=== PATIENT | female | born 1945 | race Caucasian/White ===

== ENCOUNTER 2020-07-09 20:11 | Observation (INO) ==
[2020-07-09] MEDS ORDERED: Isovue-370 500 ML BOTTLE IVP ONE (20:42)
[2020-07-09 21:00] LABS: Basophils % 0.4 %; Eosinophils # 0.1 K/mcL (0.0-0.6); Eosinophils % 0.8 %; Hematocrit 28.8 % (35.3-44.9); Hemoglobin 8.9 g/dL (11.5-15.4); Immature Granulocytes % 1.1 % (0-4); Lymphocytes # 1.7 K/mcL (0.6-4.6); Mean Corpuscular HGB Conc 30.9 g/dL (31.6-35.5); Mean Corpuscular Hemoglobin 28.6 pg (28.0-33.3); Mean Corpuscular Volume 92.6 fL (83.0-100.0); Mean Platelet Volume 10.6 fL (9.4-12.4); Monocytes # 0.8 K/mcL (0.0-1.3); Monocytes % 7.2 %; Neutrophils # 7.9 K/mcL (1.6-8.9); Platelet Count 217 K/mcL (140-400); Red Blood Count 3.11 M/mcL (3.82-4.97); Red Cell Distribution Width 15.6 % (11.5-14.5); Segmented Neutrophils % 74.5 %; White Blood Count 10.7 K/mcL (4.3-11.1)
[2020-07-09 21:06] LABS: INR 1.2; Prothrombin Time 13.5 Seconds (9.4-12.1)
[2020-07-09 21:09] LABS: Activated Partial Thrombo Time 35.1 Seconds (26.0-36.0)
[2020-07-09 21:29] LABS: Albumin 3.5 g/dL (3.5-5.7); Albumin/Globulin Ratio 1.3 (1.1-2.2); Bilirubin,Total 0.4 mg/dL (0.3-1.0); Calcium 7.8 mg/dL (8.6-10.3); Globulin 2.7 g/dL (2.4-3.5); Potassium 4.7 mEq/L (3.5-5.1); Total Protein 6.2 g/dL (6.4-8.9)
[2020-07-09] MEDS ORDERED: 0.9 % Sodium Chloride 1,000 ML IVC ONE (21:38)
[2020-07-09 23:25] LABS: Basophils % 0.3 %; Eosinophils % 0.4 %; Hematocrit 25.9 % (35.3-44.9); Hemoglobin 8.2 g/dL (11.5-15.4); Immature Granulocytes % 0.8 % (0-4); Lymphocytes # 1.9 K/mcL (0.6-4.6); Lymphocytes % 18.3 %; Mean Corpuscular HGB Conc 31.7 g/dL (31.6-35.5); Mean Corpuscular Hemoglobin 29.3 pg (28.0-33.3); Mean Corpuscular Volume 92.5 fL (83.0-100.0); Mean Platelet Volume 10.8 fL (9.4-12.4); Monocytes # 0.7 K/mcL (0.0-1.3); Monocytes % 7.2 %; Neutrophils # 7.4 K/mcL (1.6-8.9); Platelet Count 180 K/mcL (140-400); Red Cell Distribution Width 15.5 % (11.5-14.5); White Blood Count 10.2 K/mcL (4.3-11.1)
[2020-07-10] MEDS ORDERED: 0.9 % Sodium Chloride 500 ML ONE (02:04)
[2020-07-10] MEDS ORDERED: Ondansetron ODT 4 MG TAB.RAPDIS SL PRN (03:10)
[2020-07-10] MEDS ORDERED: Naloxone 0.4 MG/ML INJ IVP PRN (03:10)
[2020-07-10] MEDS ORDERED: Mag Hydrox/Al Hydrox/Simeth 30 ML UDC PO PRN (03:10)
[2020-07-10 06:28] LABS: Hematocrit 28.3 % (35.3-44.9); Mean Corpuscular HGB Conc 31.8 g/dL (31.6-35.5); Mean Corpuscular Hemoglobin 29.2 pg (28.0-33.3); Mean Corpuscular Volume 91.9 fL (83.0-100.0); Mean Platelet Volume 10.9 fL (9.4-12.4); Platelet Count 181 K/mcL (140-400); Red Blood Count 3.08 M/mcL (3.82-4.97); Red Cell Distribution Width 15.5 % (11.5-14.5); White Blood Count 8.8 K/mcL (4.3-11.1)
[2020-07-10 06:43] LABS: Calcium 7.8 mg/dL (8.6-10.3); Potassium 4.3 mEq/L (3.5-5.1)
[2020-07-10 11:15] LABS: Hematocrit 27.5 % (35.3-44.9); Hemoglobin 8.8 g/dL (11.5-15.4)
[2020-07-10 15:51] LABS: Hematocrit 27.7 % (35.3-44.9); Hemoglobin 8.8 g/dL (11.5-15.4)
[2020-07-11] MEDS ORDERED: Aspirin Enteric Coated 81 MG Tablet PO SCH (09:00)
[2020-07-11] MEDS ORDERED: Furosemide 20 MG TABLET PO SCH (09:00)
[2020-07-11] MEDS ORDERED: atenoloL 50 MG TABLET PO SCH (09:00)
[2020-07-11 10:17] LABS: Basophils % 0.4 %; Eosinophils # 0.1 K/mcL (0.0-0.6); Eosinophils % 1.4 %; Hematocrit 26.5 % (35.3-44.9); Hemoglobin 8.4 g/dL (11.5-15.4); Immature Granulocytes % 0.9 % (0-4); Lymphocytes # 1.3 K/mcL (0.6-4.6); Lymphocytes % 17.1 %; Mean Corpuscular HGB Conc 31.7 g/dL (31.6-35.5); Mean Corpuscular Hemoglobin 29.4 pg (28.0-33.3); Mean Corpuscular Volume 92.7 fL (83.0-100.0); Mean Platelet Volume 10.9 fL (9.4-12.4); Monocytes # 0.8 K/mcL (0.0-1.3); Monocytes % 10.6 %; Neutrophils # 5.4 K/mcL (1.6-8.9); Platelet Count 159 K/mcL (140-400); Red Blood Count 2.86 M/mcL (3.82-4.97); Red Cell Distribution Width 15.6 % (11.5-14.5); Segmented Neutrophils % 69.6 %; White Blood Count 7.8 K/mcL (4.3-11.1)
[2020-07-11 10:35] LABS: Magnesium 2.1 mg/dL (1.6-2.6); Phosphorous 2.5 mg/dL (2.7-4.5); Potassium 3.8 mEq/L (3.5-5.1)
[2020-07-11 11:58] VITALS: BP 130/64
== END 2020-07-11 12:45 | disposition home or self-care (01) ==
LOC: 2NNU 20:11 → EMEROOARM 20:11 → 2NNU 07-10 00:40
PROVIDERS: ADMIT Internal Medicine; ATTEND Internal Medicine

== ENCOUNTER 2020-07-13 09:00 | Inpatient (IN) ==
[~2020-07-13 09:00] MED LIST: *HR* HYDROmorphone 2 MG TABLET PO PRN; *HR* HYDROmorphone PF 0.5 MG/0.5 ML SYRINGE IVP PRN; *HR* Labetalol 20 MG/4 ML SYRINGE IVP PRN; Acetaminophen IV 1,000 MG/100 ML BAG IVPB ONE; Famotidine 20 MG/2 ML VIAL IVP ONE; Pregabalin 75 MG CAPSULE PO ONE
[2020-07-13] MEDS ORDERED: Lidocaine HCL 4 ML Topical Solution (Laryng-O-Jet Kit Sterile Pak) TP ONE (09:21)
[2020-07-13] MEDS ORDERED: Dexamethasone 4 MG/ML VIAL ONE (09:21)
[2020-07-13] MEDS ORDERED: Lidocaine -MPF 2% 2 ML VIAL ONE (09:21)
[2020-07-13] MEDS ORDERED: *HR* Propofol 200 MG/20 ML VIAL IVP ONE (09:21)
[2020-07-13] MEDS ORDERED: Ondansetron 4 MG/2 ML VIAL ONE (09:21)
[2020-07-13] MEDS ORDERED: *HR* Rocuronium Bromide 50 MG/5 ML VIAL ONE (09:21)
[2020-07-13] MEDS ORDERED: *HR* Remifentanil 2 MG VIAL IVP ONE (09:22)
[2020-07-13] MEDS ORDERED: CeFAZolin Syr 2,000MG/20 ML 2,000 MG/20 ML SYRINGE IVPB ONE (09:26)
[2020-07-13] MEDS ORDERED: *HR* Heparin 5,000 UNIT/ML VIAL ONE (09:26)
[2020-07-13] MEDS ORDERED: Ringers Solution, Lactated 1,000 ML IVC SCH (09:30)
[2020-07-13] MEDS ORDERED: ceFAZolin 1,000 MG, Sodium Chloride IRRigation 1,000 ML IR ONE (10:30)
[2020-07-13] MEDS ORDERED: Heparin 1,000 UNITS/500 mL 500 ML ONE (11:04)
[2020-07-13] MEDS ORDERED: Protamine Sulfate 50 MG/5 ML VIAL IVP ONE (11:04)
[2020-07-13] MEDS ORDERED: *HR* FentaNYL (PF) 100 MCG/2 ML VIAL ONE (12:14)
[2020-07-13] MEDS ORDERED: EPHEDrine 50 MG/ML VIAL ONE (12:19)
[2020-07-13] MEDS ORDERED: Sugammadex Sodium 200 MG/2 ML VIAL IV ONE (15:29)
[2020-07-13] MEDS ORDERED: Ondansetron 4 MG/2 ML VIAL IVP PRN (16:45)
[2020-07-13] MEDS ORDERED: *HR* HYDROcodone/Acet 5/325 mg TABLET PO PRN (16:45)
[2020-07-13] MEDS ORDERED: Acetaminophen 325 MG TABLET PO PRN (16:45)
[2020-07-13] MEDS ORDERED: Naloxone 0.4 MG/ML INJ IVP PRN (16:45)
[2020-07-13] MEDS ORDERED: *HR* Labetalol 20 MG/4 ML SYRINGE IVP PRN (16:45)
[2020-07-13] MEDS: CeFAZolin 2 GM/120 ML BAG IVPB SCH (21:51)
[2020-07-14] MEDS: CeFAZolin 2 GM/120 ML BAG IVPB SCH ×2 (03:52→12:58)
[2020-07-14 04:11] LABS: Basophils % 0.3 %; Hematocrit 24.3 % (35.3-44.9); Hemoglobin 7.6 g/dL (11.5-15.4); Immature Granulocytes % 1.2 % (0-4); Lymphocytes # 0.8 K/mcL (0.6-4.6); Lymphocytes % 11.4 %; Mean Corpuscular HGB Conc 31.3 g/dL (31.6-35.5); Mean Corpuscular Hemoglobin 29.1 pg (28.0-33.3); Mean Corpuscular Volume 93.1 fL (83.0-100.0); Mean Platelet Volume 11.3 fL (9.4-12.4); Monocytes # 0.4 K/mcL (0.0-1.3); Monocytes % 4.8 %; Platelet Count 169 K/mcL (140-400); Red Blood Count 2.61 M/mcL (3.82-4.97); Red Cell Distribution Width 15.2 % (11.5-14.5); Segmented Neutrophils % 82.3 %; White Blood Count 7.3 K/mcL (4.3-11.1)
[2020-07-14 04:31] LABS: Calcium 7.7 mg/dL (8.6-10.3); Potassium 4.4 mEq/L (3.5-5.1)
[2020-07-14] MEDS ORDERED: 0.9 % Sodium Chloride 250 ML ONE (08:40)
[2020-07-14] MEDS ORDERED: atenoloL 50 MG TABLET PO SCH (09:00)
[2020-07-14] MEDS ORDERED: Furosemide 20 MG TABLET PO SCH (09:00)
[2020-07-14] MEDS ORDERED: Aspirin Enteric Coated 81 MG Tablet PO SCH (09:00)
[2020-07-14 16:32] VITALS: BP 122/73
== END 2020-07-14 17:42 | disposition home or self-care (01) | DRG 38 ==
LOC: SAMDAY 09:00 → 2NNU 16:16
PROVIDERS: ADMIT Surgery Vascular Surgery; ATTEND Surgery Vascular Surgery

== ENCOUNTER 2022-02-06 11:13 | Inpatient (IN) ==
[2022-02-06 12:42] LABS: Red Cell Distribution Width 22.5 % (11.5-14.5)
[2022-02-06 12:44] LABS: Eosinophils # 0.1 K/mcL (0.0-0.6); Eosinophils % 3.1 %; Hematocrit 16.6 % (35.3-44.9); Immature Granulocytes % 1.8 % (0-4); Immature Platelets 16.2 % (1.1-6.1); Lymphocytes # 1.3 K/mcL (0.6-4.6); Lymphocytes % 56.8 %; Mean Corpuscular HGB Conc 30.1 g/dL (31.6-35.5); Mean Corpuscular Volume 112.9 fL (83.0-100.0); Mean Platelet Volume 13.5 fL (9.4-12.4); Monocytes # 0.1 K/mcL (0.0-1.3); Monocytes % 3.5 %; Neutrophils # 0.8 K/mcL (1.6-8.9); Red Blood Count 1.47 M/mcL (3.82-4.97); Segmented Neutrophils % 34.8 %; White Blood Count 2.3 K/mcL (4.3-11.1)
[2022-02-06 12:54] LABS: INR 1.1; Prothrombin Time 12.5 Seconds (9.4-12.1)
[2022-02-06 12:56] LABS: Activated Partial Thrombo Time 44.9 Seconds (26.0-36.0)
[2022-02-06 13:04] LABS: Platelet Count 82 K/mcL (140-400)
[2022-02-06 13:19] LABS: Platelet Estimate Decreased (Normal)
[2022-02-06 13:20] LABS: Hypochromasia Present (Not Present); Macrocytosis Present (Not Present)
[2022-02-06 14:04] LABS: BUN/Creatinine Ratio 25 (6-26); Blood Urea Nitrogen 38 mg/dL (8-23); Calcium 8.1 mg/dL (8.6-10.3); Carbon Dioxide 26 mEq/L (23-29); Chloride 109 mEq/L (98-107); Glucose 104 mg/dL (70-105); Osmolality,Calculated 303 (280-300); Potassium 4.3 mEq/L (3.5-5.1); Sodium 142 mEq/L (136-145); Troponin I 0.06 ng/mL (< 0.04); eGFR For African Americans 39 (> 60); eGFR For Non-African Americans 33 (> 60)
[2022-02-06] MEDS ORDERED: 0.9 % Sodium Chloride 250 ML ONE ×2 (14:25→19:53)
[2022-02-06] MEDS ORDERED: Pantoprazole 40 MG VIAL IVP ONE (15:15)
[2022-02-06] MEDS ORDERED: Ondansetron 4 MG/2 ML VIAL IVP PRN (17:30)
[2022-02-06] MEDS ORDERED: Acetaminophen 325 MG TABLET PO PRN (17:30)
[2022-02-06] MEDS ORDERED: Melatonin 3 MG TABLET PO PRN (17:30)
[2022-02-06 17:32] LABS: % Iron Saturation 25 % (15-50); Alanine Aminotransferase 10 Units/L (7-52); Albumin 3.4 g/dL (3.5-5.7); Albumin/Globulin Ratio 1.3 (1.1-2.2); Alkaline Phosphatase 52 Units/L (34-104); Aspartate Amino Transferase 15 Units/L (13-39); Bilirubin,Indirect 0.3 mg/dL (0.0-1.0); Bilirubin,Total 0.3 mg/dL (0.3-1.0); C-Reactive Protein < 5 mg/L (Less than 10); Globulin 2.6 g/dL (2.4-3.5); Iron 89 mcg/dL (50-170); Lactate Dehydrogenase 139 Units/L (140-271); Transferrin 251 mg/dL (203-362)
[2022-02-06 18:09] LABS: Ferritin 37 ng/mL (10-120)
[2022-02-07 04:55] LABS: Basophils % 0.4 %; Eosinophils # 0.1 K/mcL (0.0-0.6); Eosinophils % 3.3 %; Hematocrit 23.5 % (35.3-44.9); Hemoglobin 7.6 g/dL (11.5-15.4); Immature Granulocytes % 1.8 % (0-4); Lymphocytes # 1.1 K/mcL (0.6-4.6); Lymphocytes % 40.8 %; Mean Corpuscular HGB Conc 32.3 g/dL (31.6-35.5); Mean Corpuscular Hemoglobin 33.8 pg (28.0-33.3); Mean Corpuscular Volume 104.4 fL (83.0-100.0); Mean Platelet Volume 12.2 fL (9.4-12.4); Monocytes # 0.3 K/mcL (0.0-1.3); Neutrophils # 1.2 K/mcL (1.6-8.9); Red Blood Count 2.25 M/mcL (3.82-4.97); Red Cell Distribution Width 22.5 % (11.5-14.5); Segmented Neutrophils % 42.7 %; White Blood Count 2.7 K/mcL (4.3-11.1)
[2022-02-07 04:56] LABS: Platelet Count 73 K/mcL (140-400)
[2022-02-07 05:09] LABS: Immature Reticulocyte % 29.6 % (11.0-38.0); Retculocyte # 0.12 M/mcL (0.05-0.10); Reticulocyte % 3.8 % (1.6-2.8)
[2022-02-07 05:10] LABS: Magnesium 2.3 mg/dL (1.6-2.6); Phosphorous 3.8 mg/dL (2.7-4.5); Potassium 4.3 mEq/L (3.5-5.1)
[2022-02-07 06:04] LABS: Adenovirus Not Detected (Not Detect); Bordetella Pertussis Not Detected (Not Detect); Chlamydophila pneumoniae Not Detected (Not Detect); Coronavirus 229E Not Detected (Not Detect); Coronavirus HKU1 Not Detected (Not Detect); Coronavirus NL63 Not Detected (Not Detect); Coronavirus OC43 Not Detected (Not Detect); Human Metapneumovirus Not Detected (Not Detect); Human Rhinovirus/Enterovirus Not Detected (Not Detect); Influenza A Subtype 2009 H1 Not Detected (Not Detect); Influenza B Not Detected (Not Detect); Mycoplasma pneumoniae Not Detected (Not Detect); Parainfluenza Virus 1 Not Detected (Not Detect); Parainfluenza Virus 2 Not Detected (Not Detect); Parainfluenza Virus 3 Not Detected (Not Detect); Parainfluenza Virus 4 Not Detected (Not Detect); Respiratory Syncytial Virus Not Detected (Not Detect); SARS-CoV-2 Not Detected (Not Detect)
[2022-02-07] MEDS: Aspirin Enteric Coated 81 MG Tablet PO SCH (08:40)
[2022-02-07] MEDS: atenoloL 50 MG TABLET PO SCH (08:40)
[2022-02-07] MEDS: Furosemide 20 MG TABLET PO SCH (08:40)
[2022-02-07] MEDS ORDERED: *HR* Propofol 200 MG/20 ML VIAL IVP ONE (11:41)
[2022-02-07] MEDS ORDERED: Lidocaine -MPF 2% 5 ML VIAL ONE (11:41)
[2022-02-08 06:07] LABS: Hematocrit 21.1 % (35.3-44.9); Hemoglobin 6.6 g/dL (11.5-15.4); Mean Corpuscular HGB Conc 31.3 g/dL (31.6-35.5); Mean Corpuscular Hemoglobin 32.7 pg (28.0-33.3); Mean Corpuscular Volume 104.5 fL (83.0-100.0); Mean Platelet Volume 12.9 fL (9.4-12.4); Platelet Count 76 K/mcL (140-400); Red Blood Count 2.02 M/mcL (3.82-4.97); Red Cell Distribution Width 21.3 % (11.5-14.5); White Blood Count 2.3 K/mcL (4.3-11.1)
[2022-02-08] MEDS: Aspirin Enteric Coated 81 MG Tablet PO SCH (07:24)
[2022-02-08] MEDS: atenoloL 50 MG TABLET PO SCH (07:24)
[2022-02-08] MEDS: Furosemide 20 MG TABLET PO SCH (07:33)
[2022-02-08] MEDS ORDERED: 0.9 % Sodium Chloride 250 ML IVC SCH (11:30)
[2022-02-08] MEDS ORDERED: *HR* FentaNYL (PF) 100 MCG/2 ML VIAL IVP ONE (11:41)
[2022-02-08] MEDS ORDERED: *HR* Midazolam HCl 2 MG/2 ML VIAL IVP ONE (11:41)
[2022-02-08] MEDS ORDERED: Furosemide 20 MG/2 ML VIAL IVP ONE (23:47)
[2022-02-09 03:54] VITALS: TEMP 98.6
[2022-02-09 04:21] LABS: Hematocrit 26.8 % (35.3-44.9); Hemoglobin 8.8 g/dL (11.5-15.4); Immature Platelets 15.3 % (1.1-6.1); Mean Corpuscular HGB Conc 32.8 g/dL (31.6-35.5); Mean Corpuscular Hemoglobin 33.1 pg (28.0-33.3); Mean Corpuscular Volume 100.8 fL (83.0-100.0); Red Blood Count 2.66 M/mcL (3.82-4.97); Red Cell Distribution Width 19.9 % (11.5-14.5)
[2022-02-09 04:32] LABS: Platelet Count 62 K/mcL (140-400)
[2022-02-09 04:37] LABS: Magnesium 2.2 mg/dL (1.6-2.6); Potassium 4.6 mEq/L (3.5-5.1)
[2022-02-09 04:57] LABS: Lymphocytes # 0.9 K/mcL (0.6-4.6)
[2022-02-09 04:58] LABS: Platelet Estimate Decreased (Normal)
[2022-02-09] MEDS: Furosemide 20 MG TABLET PO SCH (08:11)
[2022-02-09] MEDS: atenoloL 50 MG TABLET PO SCH (08:11)
[2022-02-09 11:37] VITALS: BP 105/45; PULSE 70; O2SAT 89
[2022-02-10 07:56] LABS: Immunoglobulin A 150 mg/dL (68-408); Immunoglobulin G 880 mg/dL (768-1632); Immunoglobulin M 139 mg/dL (35-263)
== END 2022-02-09 13:20 | disposition home or self-care (01) | DRG 378 ==
LOC: 3NENU 11:13 → EMEROOARM 11:13 → SUATTDRO 16:46 → 3NENU 18:02
PROVIDERS: ADMIT Internal Medicine; ATTEND Internal Medicine

== ENCOUNTER 2022-03-13 13:41 | Inpatient (IN) ==
[2022-03-13 14:25] LABS: Eosinophils # 0.1 K/mcL (0.0-0.6); Hematocrit 15.9 % (35.3-44.9); Immature Platelets 20.4 % (1.1-6.1); Mean Corpuscular HGB Conc 32.1 g/dL (31.6-35.5); Mean Corpuscular Hemoglobin 30.2 pg (28.0-33.3); Mean Corpuscular Volume 94.1 fL (83.0-100.0); Red Blood Count 1.69 M/mcL (3.82-4.97); Red Cell Distribution Width 16.1 % (11.5-14.5); White Blood Count 2.9 K/mcL (4.3-11.1)
[2022-03-13 14:35] LABS: Hemoglobin 5.1 g/dL (11.5-15.4)
[2022-03-13 14:36] LABS: Platelet Count 17 K/mcL (140-400)
[2022-03-13 15:10] LABS: Calcium 8.2 mg/dL (8.6-10.3); Potassium 4.2 mEq/L (3.5-5.1); Troponin I 0.04 ng/mL (< 0.04)
[2022-03-13 15:31] LABS: Lymphocytes # 0.7 K/mcL (0.6-4.6); Neutrophils # 2.1 K/mcL (1.6-8.9)
[2022-03-13 15:32] LABS: Platelet Estimate Marked Decrease (Normal)
[2022-03-13] MEDS ORDERED: Naloxone 0.4 MG/ML INJ IVP PRN (16:11)
[2022-03-13] MEDS ORDERED: Ondansetron 4 MG/2 ML VIAL IVP PRN (16:11)
[2022-03-13] MEDS ORDERED: Furosemide 20 MG TABLET PO PRN (16:16)
[2022-03-13] MEDS ORDERED: cefTRIAXone 1,000 MG in Water for inj. (sterile) 10 ML IVP SCH (17:00)
[2022-03-13] MEDS ORDERED: 0.9 % Sodium Chloride 250 ML ONE ×2 (18:39→22:05)
[2022-03-13] MEDS: Azithromycin 500 MG in 0.9 % Sodium Chloride 250 ML IVPB SCH (20:42)
[2022-03-13] MEDS ORDERED: CefTRIAXone 1,000 MG VIAL ONE (20:49)
[2022-03-13] MEDS: 0.9 % Sodium Chloride 1,000 ML IVC ONE ×2 (20:53→21:00)
[2022-03-13] MEDS: cefTRIAXone 1,000 MG in Water for inj. (sterile) 10 ML IVP SCH (21:01)
[2022-03-14] MEDS ORDERED: 0.9 % Sodium Chloride 250 ML ONE ×2 (00:53→16:05)
[2022-03-14 03:17] LABS: Mean Corpuscular Hemoglobin 30.1 pg (28.0-33.3); Red Blood Count 1.76 M/mcL (3.82-4.97)
[2022-03-14 03:19] LABS: Eosinophils # 0.1 K/mcL (0.0-0.6); Hematocrit 16.8 % (35.3-44.9); Immature Platelets 11.7 % (1.1-6.1); Mean Corpuscular HGB Conc 31.5 g/dL (31.6-35.5); Mean Corpuscular Volume 95.5 fL (83.0-100.0); Mean Platelet Volume 12.2 fL (9.4-12.4); Red Cell Distribution Width 15.6 % (11.5-14.5); White Blood Count 2.4 K/mcL (4.3-11.1)
[2022-03-14 03:26] LABS: Hemoglobin 5.3 g/dL (11.5-15.4); Platelet Count 20 K/mcL (140-400)
[2022-03-14 03:28] LABS: Calcium 7.5 mg/dL (8.6-10.3); Magnesium 1.9 mg/dL (1.6-2.6); Phosphorous 3.8 mg/dL (2.7-4.5)
[2022-03-14 04:26] LABS: Hypochromasia Present (Not Present); Neutrophils # 1.3 K/mcL (1.6-8.9); Platelet Estimate Marked Decrease (Normal)
[2022-03-14] MEDS: cefTRIAXone 1,000 MG in Water for inj. (sterile) 10 ML IVP SCH (09:24)
[2022-03-14] MEDS: allopurinoL 300 MG TABLET PO SCH (09:24)
[2022-03-14] MEDS: atenoloL 50 MG TABLET PO SCH (09:24)
[2022-03-14] MEDS: Acyclovir 200 MG CAPSULE PO SCH ×2 (15:22→22:07)
[2022-03-14] MEDS: Azithromycin 500 MG in 0.9 % Sodium Chloride 250 ML IVPB SCH (18:31)
[2022-03-15] MEDS ORDERED: 0.9 % Sodium Chloride 250 ML ONE (00:23)
[2022-03-15 03:09] LABS: Hematocrit 21.6 % (35.3-44.9); Hemoglobin 7.3 g/dL (11.5-15.4); Immature Platelets 15.7 % (1.1-6.1); Mean Corpuscular HGB Conc 33.8 g/dL (31.6-35.5); Mean Corpuscular Hemoglobin 29.4 pg (28.0-33.3); Mean Corpuscular Volume 87.1 fL (83.0-100.0); Red Blood Count 2.48 M/mcL (3.82-4.97); Red Cell Distribution Width 15.9 % (11.5-14.5); White Blood Count 2.1 K/mcL (4.3-11.1)
[2022-03-15 03:15] LABS: Platelet Count 18 K/mcL (140-400)
[2022-03-15 03:32] VITALS: BP 120/43; PULSE 84; TEMP 98.3; O2SAT 98
[2022-03-15 03:32] LABS: Calcium 7.3 mg/dL (8.6-10.3); Magnesium 1.8 mg/dL (1.6-2.6); Phosphorous 2.8 mg/dL (2.7-4.5); Potassium 4.1 mEq/L (3.5-5.1)
[2022-03-15 04:49] LABS: Eosinophils # 0.2 K/mcL (0.0-0.6); Lymphocytes # 0.9 K/mcL (0.6-4.6); Neutrophils # 0.8 K/mcL (1.6-8.9)
[2022-03-15 04:50] LABS: Hypochromasia Present (Not Present); Platelet Estimate Marked Decrease (Normal)
[2022-03-15 05:02] LABS: Mean Platelet Volume 11.2 fL (9.4-12.4)
[2022-03-15] MEDS ORDERED: CefTRIAXone 1,000 MG VIAL ONE (09:02)
[2022-03-15] MEDS: cefTRIAXone 1,000 MG in Water for inj. (sterile) 10 ML IVP SCH (09:06)
[2022-03-15] MEDS: Acyclovir 200 MG CAPSULE PO SCH (09:07)
[2022-03-15] MEDS: atenoloL 50 MG TABLET PO SCH (09:07)
[2022-03-15] MEDS: allopurinoL 300 MG TABLET PO SCH (09:08)
== END 2022-03-15 13:55 | disposition home or self-care (01) | DRG 840 ==
LOC: EMEROOARM 13:41 → 3NENU 13:41
PROVIDERS: ADMIT Internal Medicine; ATTEND Internal Medicine